=== PATIENT | female | born 1965 | race African-American/Black ===

== ENCOUNTER 2018-10-17 02:08 | Emergency (ER) | payer MEDICARE, MEDICAID ==
[~2018-10-17] VITALS: Ht 165.1 cm; Wt 97.0 kg
[2018-10-17] MEDS ORDERED: HYDROCODONE/ACETAMINOPHEN 10/325MG TABLET PO ONE (03:00)
[2018-10-17] MEDS ORDERED: TETANUS, DIPHTHERIA, PERTUSSIS VAC/PF 0.5ML (>7YR OLD) IM ONE (03:00)
[2018-10-17] MEDS ORDERED: KETOROLAC 60MG/2ML VIAL IM ONE (03:00)
[2018-10-17 04:17] VITALS: BP 117/87
== END 2018-10-17 04:35 | disposition home or self-care (01) ==
LOC: ER 02:08
DX: S41.102A Unspecified open wound of left upper arm, initial encounter (principal); M19.90 Unspecified osteoarthritis, unspecified site; F32.9 Major depressive disorder, single episode, unspecified; I10 Essential (primary) hypertension; F20.9 Schizophrenia, unspecified; F17.210 Nicotine dependence, cigarettes, uncomplicated; W32.0XXA Accidental handgun discharge, initial encounter; Y93.89 Activity, other specified; Y92.89 Other specified places as the place of occurrence of the external cause
CPT/HCPCS: 73060; 90471; 90715; 96372; 99283; J1885

== ENCOUNTER 2019-08-01 19:46 | Emergency (ER) | payer MEDICARE, MEDICAID ==
[~2019-08-01] VITALS: Ht 165.1 cm; Wt 99.3 kg
[2019-08-02] MEDS ORDERED: IBUPROFEN 600MG TABLET PO ONE (01:00)
[2019-08-02] MEDS ORDERED: LIDOCAINE HCL 1% 20ML VIAL (Pyxis) INJ INFIL ONE (01:45)
[2019-08-02] MEDS ORDERED: BACITRACIN ZINC OINT UDPKT TOP ONE (02:30)
[2019-08-02 03:09] VITALS: BP 161/88
== END 2019-08-02 03:10 | disposition home or self-care (01) ==
LOC: ER 19:46
DX: L03.011 Cellulitis of right finger (principal); S62.101A Fracture of unspecified carpal bone, right wrist, initial encounter for closed fracture; S80.211A Abrasion, right knee, initial encounter; I10 Essential (primary) hypertension; F20.9 Schizophrenia, unspecified; M19.90 Unspecified osteoarthritis, unspecified site; J45.909 Unspecified asthma, uncomplicated; F12.10 Cannabis abuse, uncomplicated; W22.8XXA Striking against or struck by other objects, initial encounter; Y93.89 Activity, other specified; Y92.810 Car as the place of occurrence of the external cause
CPT/HCPCS: 10060; 73110; 99283; J3490